=== PATIENT | female | born 1970 | race Caucasian/White ===

== ENCOUNTER 2018-02-26 09:13 | Inpatient (IN) | payer OTHER ==
[~2018-02-26] VITALS: Ht 160 cm; Wt 48.5 kg
[2018-02-26] VITALS (14 sets, daily range): BP systolic 94–118; BP diastolic 64–81
[~2018-02-26 09:13] MED LIST: MILK THISTLE140 M1 PO; ONE DAILY1 EAC3 ORAL; Pantoprazole Inj IVP ONE; Vancomycin 1gm/D5W 275ml IVPB ONE
[2018-02-26] MEDS ORDERED: Vancomycin 1gm inj IVPB ONE (10:36)
[2018-02-26] MEDS ORDERED: Pantoprazole Inj ONE (10:36)
[2018-02-26] MEDS ORDERED: Thrombin 5000 units spray kit TOPIC ONE ×2 (10:48→13:24)
[2018-02-26] MEDS ORDERED: EPINEPHrine 1mg/1ml Amp ONE (10:48)
[2018-02-26] MEDS ORDERED: Thrombin 5000 units TOPIC ONE ×2 (10:49→10:51)
[2018-02-26] MEDS ORDERED: Gelfoam Absorbable 1gm powder pkt TOPIC ONE (10:49)
[2018-02-26] MEDS ORDERED: Gelfoam Size TOPIC ONE (10:49)
[2018-02-26] MEDS ORDERED: Bacitracin 50000 Units Vial ONE ×2 (10:49→13:37)
[2018-02-26] MEDS ORDERED: Bupivacaine 0.5% Inj 30 ml vial INJ ONE (10:49)
[2018-02-26] MEDS ORDERED: Sterile Water Irrig 1000ml IRRIG ONE (11:00)
[2018-02-26] MEDS ORDERED: LR 1000ml ONE (11:00)
[2018-02-26] MEDS ORDERED: Propofol 1,000mg/ 100ml btl IV ONE (11:00)
[2018-02-26] MEDS ORDERED: Neostigmine 1mg/ml 10ml Inj ONE (11:00)
--- NOTE | 2018-02-26 11:02 | Anethesia Preoperative Eval ---
Anesthesia Pre-op PMH/ROS General Date of Evaluation: Feb 26, 2018 Time of Evaluation: 11:01 Anesthesiologist: [id number] ASA Score: ASA 2 Mallampati Score Class I : Soft palate, uvula, fauces, pillars visible Class II: Soft palate, uvula, fauces visible Class III: Soft palate, base of uvula visible Class IV: Only hard plate visible Mallampati Classification: Class I Surgeon: Solange Diagnosis: Back Pain Surgical Procedure: TLIF L4-5, L5-S1 Anesthesia History: none Family History: no anesthesia problems Allergies: Coded Allergies: No Known Allergies (Unverified , 02/26/18) Medications: see eMAR Past Medical History Neurologic/Psychiatric: Reports: other - Headache PSxH Narrative: Lithotripsy Anesthesia Pre-op Phys. Exam Physician Exam Last Vital Signs Date Time Temp Pulse Resp B/P (MAP) Pulse Ox O2 Delivery O2 Flow Rate FiO2 02/26/18 10:03 97.7 74 18 94/68 (77) 99 97.7 02/26/18 09:44 Room Air Constitutional: NAD Neurologic: CN 2-12 intact Cardiovascular: RRR Respiratory: CTA Gastrointestinal: S/NT/ND Airway Exam Mallampati Score: Class I MO: full ROM: full Teeth: intact Anesthesia Pre-op A/P Labs Urine Test Test 02/26/18 09:25 Urine HCG, Qualitative Negative (NEGATIVE) Risk Assessment & Plan Assessment: ASA 2 Plan: GA, SED, GlideScope Go Status Change Before Surgery: No Pre-Antibiotics Dru Gram Vancomycin IV Given Within 1 Hr of Incision: Yes Time Given: 11:16 Nato Hall MD Feb 26, 2018 11:02
[2018-02-26] MEDS ORDERED: Sodium Chloride 10ml vial INJ ONE (11:03)
[2018-02-26] MEDS ORDERED: Lidocaine 1% MPF 10mg/ml 5ml ONE (11:03)
[2018-02-26] MEDS ORDERED: Dexamethasone 4mg/ml vial ONE (11:03)
[2018-02-26] MEDS ORDERED: Lidocaine 1% Plain 30 ml INJ ONE ×2 (11:03→13:31)
--- NOTE | 2018-02-26 11:07 | Pre-Procedure Note/Attestation ---
Pre-Procedure Note/Attestation Complete Prior to Procedure Planned Procedure: bilateral Procedure Narrative: Redo posterior lumbar decompression at L4-5 and L5-S1 levels, with pedicle screw fixation and posterolateral arthrodesis at L4 to S1 with allograft, autograft and iliac crest bone marrow aspiration,and interbody graft at L5-S1 Attestation I attest that I discussed the nature of the procedure; its benefits; risks and complications; and alternatives (and the risks and benefits of such alternatives ), prior to the procedure, with the patient (or the patient's legal manufacturer representative). I attest that, if there was a reasonable possibility of needing a blood transfusion, the patient (or the patient's legal manufacturer representative) was given the [place] Department [employer] [facility] standardized written summary, pursuant to the [place] Blood Safety Act ([place] Health and Safety Code # 1645, as amended). I attest that I re-evaluated the patient just prior to the surgery and that there has been no change in the patient's H&P, except as documented below: Sandy Narvaez MD Feb 26, 2018 11:07
[2018-02-26] MEDS ORDERED: Heparin 5000 units/ml inj ONE (11:11)
--- NOTE | 2018-02-26 11:57 | Immediate Post-Op Evaluation ---
Immediate Post-Op Evalulation Immediate Post-Op Evalulation Procedure: TLIF L4-5, L5-S1 Date of Evaluation: Feb 26, 2018 Time of Evaluation: 16:37 IV Fluids: 1000 LR Blood Products: 0 Estimated Blood Loss: 75 Urinary Output: 200 Blood Pressure Systolic: 116 Blood Pressure Diastolic: 72 Pulse Rate: 81 Respiratory Rate: 16 O2 Sat by Pulse Oximetry: 100 Temperature (Fahrenheit): 98.3 Pain Score (1-10): 3 Nausea: No Vomiting: No Complications 0 Patient Status: awake, reacts, patent, extubated, none Hydration Status: adequate Dru Gram Vancomycin IV Given Within 1 Hr of Incision: Yes Time Given: 11:16 Nato Hall MD Feb 26, 2018 11:57
[2018-02-26] MEDS ORDERED: NS Irrig 1000ml IRRIG ONE (12:30)
[2018-02-26] MEDS ORDERED: HYDROcodone/Acetamin 7.5/325 tab ORAL PRN (12:44)
[2018-02-26] MEDS ORDERED: Hydromorphone 0.5mg/0.5ml inj IVP PRN (12:44)
[2018-02-26] MEDS ORDERED: Norco 5mg/325mg tab ORAL PRN (12:44)
[2018-02-26] MEDS ORDERED: Ketorolac 30mg Inj IV PRN ×2 (12:45)
[2018-02-26] MEDS ORDERED: oxyCODONE HCL/Acetaminophen 5/325mg ORAL PRN (12:45)
[2018-02-26] MEDS ORDERED: Metoclopramide 10mg/2ml Inj IVP PRN (12:46)
[2018-02-26] MEDS ORDERED: LORazepam Inj 2mg/ml 1ml IV PRN (12:46)
[2018-02-26] MEDS ORDERED: Midazolam 2mg/2ml Inj IVP PRN (12:46)
[2018-02-26] MEDS ORDERED: Labetalol 5mg/ml 20ml vial IV PRN (12:47)
[2018-02-26] MEDS ORDERED: DiphenhydrAMINE 50mg/ml Inj IVP PRN (12:47)
[2018-02-26] MEDS ORDERED: LR 1000ml 1,000 ML IVLG SCH (12:48)
[2018-02-26] MEDS ORDERED: Atropine Sulfate 0.4mg/ml inj IVP PRN (12:48)
[2018-02-26] MEDS ORDERED: Meperidine 50mg/ml Inj(FOR RIGORS ONLY) IVP PRN (12:48)
[2018-02-26] MEDS ORDERED: fentaNYL 100 mcg/2 mL IV PRN (12:49)
[2018-02-26] MEDS ORDERED: Acetaminophen (Non formulary) 100 ML IV ONE (12:49)
[2018-02-26] MEDS ORDERED: fentaNYL 100 mcg/2 mL IV ONE (13:16)
[2018-02-26] MEDS ORDERED: Glycopyrrolate 0.2mg/ml 1ml Vial ONE (15:36)
[2018-02-26] MEDS ORDERED: Naloxone 0.4mg/ml Inj ONE (15:45)
[2018-02-26] MEDS ORDERED: PCA Education Pamphlet MISC ONE (16:00)
[2018-02-26] MEDS ORDERED: Naloxone 0.4mg/ml Inj IVP PRN (16:00)
[2018-02-26] MEDS ORDERED: Rate Change PCA 1 Each MISC PRN (16:00)
[2018-02-26] MEDS ORDERED: LORazepam 1mg tab ORAL PRN (16:00)
[2018-02-26] MEDS ORDERED: PCA HYDROmorphone 1mg/ml 30 ML IV PRN (16:00)
[2018-02-26] MEDS ORDERED: HYDROmorphone 1mg/ml Carpuject IVP PRN (16:30)
[2018-02-26] MEDS ORDERED: Milk of Magnesia 30ml Ud ORAL PRN (16:30)
[2018-02-26] MEDS ORDERED: traMADol 50mg tab ORAL PRN (16:30)
--- NOTE | 2018-02-26 16:51 | Brief Operative Note ---
Immediate Post Operative Note Operative Note Chief Complaint: intractable low back pain and radiculopathy Pre-op Diagnosis: 1. Intractacble post-trauma low back pain and radiculopathy 2. status post prior lumbar disectomy L45- and L5-S1 on the right 3. Lack of improvement from conservative care and prior lumbar decompressive surgery. Procedure: 1. Redo R L4 hemilaminectomy, foraminotomy and removal of epidural scar and decompression of the nerve root and thecal sac centrally. 2. Neurolysis of the Right L5 nerve root with microdissection and intra- operative microscope. 3. Left L5 hemilaminectomy , medial facetectomy and foraminotomy. 4. Trans foraminal discectomy, decompression of the foraminal nerve L5-S1 level 5. Insertion of a 10 mm titanium biomechanical device at the L5-S1 level 6. Trans pedicular fixation through intra-muscular approach, using the U&I system, L4 L5 and S1 levels, bilaterally under fluoroscopic guidance. 6.0 ad 5.0 screw. 40 and 45 mm 7. posterolateral arthrodesis , L4 to S1 bilaterally 8. [place] of local bone from lamina for grafting 9. Right iliac crest bone marrow aspiration and processing for grafting 10. Application of epidural fat graft to laminectomy defect at L5-S1 11. Intra-op supervision, use and interpretation of fluoroscopy for localization and instrumentation of the lumbar spine. 12. Plastic surgical closure of 10 cm lumbar wound 13. Insertion of epidural drain 14. Microdissection with use of operative microscope. Post-op Diagnosis: same as pre-op Findings: consistent w/pre-op dx studies Surgeon: Sandy Narvaez MD Salesperson Hosiery: Jeremy Martinez MD Anesthesiologist: Dr. Aguilar Anesthesia: general Specimen: yes - disc L5-S1 and epidural scar L4-5 Complications: none Condition: stable Fluids: 1.0 liter crystalloid Estimated Blood Loss: volume - 50 cc Drains: hemovac Implant(s) used?: Yes - U & I pedicle screws . Renovis #-D titanium cage. [place]. Bone marrow\aspirate Sandy Narvaez MD Feb 26, 2018 16:51
--- NOTE | 2018-02-26 17:09 | General Progress Note ---
Progress Note Progress Note Neurosuregry Post op Recovery S/ Comfortable. No leg pain O/ Vs: Last 24 Hour Vital Signs Date Time Temp Pulse Resp B/P (MAP) Pulse Ox O2 Delivery O2 Flow Rate FiO2 02/26/18 17:05 98.5 02/26/18 17:00 98.5 02/26/18 16:50 65 15 112/77 100 Nasal Cannula 3 02/26/18 16:40 68 13 109/78 100 Simple Mask 6 02/26/18 16:35 76 17 109/79 100 Simple Mask 6 02/26/18 16:30 76 20 116/81 100 Simple Mask 6 02/26/18 16:27 208.9 81 16 100 02/26/18 16:26 98.5 81 16 116/70 100 Simple Mask 6 98.5 02/26/18 10:03 97.7 74 18 94/68 (77) 99 97.7 02/26/18 09:44 Room Air Alert and oriented x 4 Moves all extremities well dressing is dry drain minimal output doing well admit family updated Sandy Narvaez MD Feb 26, 2018 17:09
[2018-02-26] MEDS ORDERED: Docusate 100mg cap ORAL SCH (18:00)
[2018-02-26] MEDS: Docusate Sod/Senna tab ORAL SCH (18:53)
[2018-02-26] MEDS: PCA shift volume MISC SCH (19:26)
[2018-02-26] MEDS: NS w/KCl 20mEq 1,000 ML IV SCH (20:37)
[2018-02-26] MEDS: ceFAZolin 1gm/50ml Premix 50 ML IV SCH (21:41)
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
[2018-02-26] MEDS: DiphenhydrAMINE 50mg/ml Inj IVP PRN (23:35)
[2018-02-27] VITALS: BP 97/61
[2018-02-27 04:00] VITALS: BP 93/63
[2018-02-27] MEDS: DiphenhydrAMINE 50mg/ml Inj IVP PRN ×2 (05:39→13:50)
[2018-02-27] MEDS: ceFAZolin 1gm/50ml Premix 50 ML IV SCH ×2 (05:39→13:51)
[2018-02-27 07:03] LABS: ANION GAP 7 mmol/L (5-15); BLOOD UREA NITROGEN 9 mg/dL (7-18); CALCIUM 8.6 MG/DL (8.5-10.1); CARBON DIOXIDE 26 MMOL/L (21-32); CHLORIDE 103 MMOL/L (98-107); CREATININE 0.9 MG/DL (0.55-1.30); POTASSIUM 3.7 MMOL/L (3.5-5.1); SODIUM 136 MMOL/L (136-145)
[2018-02-27 07:07] LABS: BASOPHILS % (AUTO) 0.1 % (0.0-2.0); EOSINOPHILS % (AUTO) 0.1 % (0.0-3.0); HEMATOCRIT 35.4 % (37.0-47.0); HEMOGLOBIN 12.3 G/DL (12.0-16.0); LYMPHOCYTES % (AUTO) 9.5 % (20.0-45.0); MEAN CORPUSCULAR VOLUME 96 FL (80-99); MONOCYTES % (AUTO) 6.1 % (1.0-10.0); NEUTROPHILS % (AUTO) 84.2 % (45.0-75.0); PLATELET COUNT 171 K/UL (150-450); RED BLOOD COUNT 3.68 M/UL (4.20-5.40); RED CELL DISTRIBUTION WIDTH 9.5 % (11.6-14.8); WHITE BLOOD COUNT 9.5 K/UL (4.8-10.8)
[2018-02-27] MEDS: PCA shift volume MISC SCH (07:25)
[2018-02-27 08:00] VITALS: BP 91/61
[2018-02-27] MEDS: NS w/KCl 20mEq 1,000 ML IV SCH (08:08)
[2018-02-27] MEDS: Docusate Sod/Senna tab ORAL SCH ×2 (08:10→17:40)
[2018-02-27] MEDS: HYDROcodone/Acetamin 7.5/325 tab ORAL PRN ×4 (09:43→18:02)
--- NOTE | 2018-02-27 10:07 | 48 Hour Post Anesthesia Eval ---
Post Anesthesia Evaluation Procedure: TLIF L4-5, L5-S1 Date of Evaluation: Feb 27, 2018 Time of Evaluation: 06:30 Blood Pressure Systolic: 93 0: 63 Pulse Rate: 65 Respiratory Rate: 18 Temperature (Fahrenheit): 98.4 O2 Sat by Pulse Oximetry: 98 Airway: patent Nausea: No Vomiting: No Pain Intensity: 2 Hydration Status: adequate Cardiopulmonary Status: at baseline Mental Status/LOC: patient returned to baseline Post-Anesthesia Complications: 0 Follow-up care needed: N/A - further care as per primary team Irene Collazo MD Feb 27, 2018 10:07
--- NOTE | 2018-02-27 10:34 | Diagnostic Imaging Report ---
INDICATION: Pain, intraoperative, back pain right lower extremity greater than left lower extremity TECHNIQUE: Intraoperative imaging Fluoroscopy time: 39 seconds Total dose: 0.35072 mGym2 Total number of images: 2 COMPARISON: None FINDINGS: Intraoperative images document posterior fusion of L4, L5, and S1 with pedicle screws and posterior fusion rods. A disc prosthesis is present at L5-S1 IMPRESSION: Intraoperative imaging, as described
[2018-02-27 12:00] VITALS: BP 96/50
[2018-02-27 16:00] VITALS: BP 91/53
--- NOTE | 2018-02-27 17:31 | General Progress Note ---
Progress Note Progress Note S/ Ambulated with PT. OFF HAND HIDE STRETCHER. No leg pain. O/ Vs: Last 24 Hour Vital Signs Date Time Temp Pulse Resp B/P (MAP) Pulse Ox O2 Delivery O2 Flow Rate FiO2 02/27/18 16:00 98.4 64 20 91/53 (66) 100 98.4 02/27/18 12:00 98.5 67 20 96/50 (65) 96 98.5 02/27/18 10:07 209.1 65 18 98 02/27/18 09:00 Room Air 02/27/18 08:00 98.1 70 20 91/61 (71) 96 98.1 02/27/18 08:00 18 02/27/18 04:56 18 02/27/18 04:00 98.4 65 18 93/63 (73) 98 98.4 02/27/18 00:25 18 02/27/18 00:00 97.1 68 18 97/61 (73) 98 97.1 02/26/18 21:06 97.1 63 18 101/68 (79) 100 97.1 02/26/18 21:02 Room Air 02/26/18 20:37 18 02/26/18 18:45 97.1 67 20 101/64 (76) 97 97.1 02/26/18 18:14 Nasal Cannula 3.0 02/26/18 17:50 97.4 74 18 115/77 (90) 100 97.4 02/26/18 17:50 18 02/26/18 17:45 17 02/26/18 17:39 98.2 70 17 110/74 100 Nasal Cannula 3 98.2 02/26/18 17:31 98.5 02/26/18 17:31 98.5 Alert and oriented x 4 Moves ll extremities well normal sensation. Lower extremity motor is 5/5. labs: Laboratory Tests Test 02/27/18 06:27 White Blood Count 9.5 K/UL (4.8-10.8) Red Blood Count 3.68 M/UL (4.20-5.40) L Hemoglobin 12.3 G/DL (12.0-16.0) Hematocrit 35.4 % (37.0-47.0) L Mean Corpuscular Volume 96 FL (80-99) Mean Corpuscular Hemoglobin 33.3 PG (27.0-31.0) H Mean Corpuscular Hemoglobin Concent 34.6 G/DL (32.0-36.0) Red Cell Distribution Width 9.5 % (11.6-14.8) L Platelet Count 171 K/UL (150-450) Mean Platelet Volume 8.6 FL (6.5-10.1) Neutrophils (%) (Auto) 84.2 % (45.0-75.0) H Lymphocytes (%) (Auto) 9.5 % (20.0-45.0) L Monocytes (%) (Auto) 6.1 % (1.0-10.0) Eosinophils (%) (Auto) 0.1 % (0.0-3.0) Basophils (%) (Auto) 0.1 % (0.0-2.0) Sodium Level 136 MMOL/L (136-145) Potassium Level 3.7 MMOL/L (3.5-5.1) Chloride Level 103 MMOL/L (98-107) Carbon Dioxide Level 26 MMOL/L (21-32) Anion Gap 7 mmol/L (5-15) Blood Urea Nitrogen 9 mg/dL (7-18) Creatinine 0.9 MG/DL (0.55-1.30) Estimat Glomerular Filtration Rate > 60 mL/min (>60) Glucose Level 86 MG/DL (74-106) Calcium Level 8.6 MG/DL (8.5-10.1) Magnesium Level 1.6 MG/DL (1.8-2.4) L doing well continue PT replace Mg d/c Sandy Pena MD Feb 27, 2018 17:31
[2018-02-27] MEDS: Magnesium Oxide 400mg tab ORAL SCH (17:40)
[2018-02-27 21:00] VITALS: BP 90/54
[2018-02-28 04:00] VITALS: BP 89/61
[2018-02-28] MEDS: HYDROcodone/Acetamin 7.5/325 tab ORAL PRN (04:45)
[2018-02-28 08:00] VITALS: BP 94/60
[2018-02-28] MEDS: Magnesium Oxide 400mg tab ORAL SCH (09:05)
[2018-02-28] MEDS: Docusate Sod/Senna tab ORAL SCH (09:05)
[2018-02-28] MEDS ORDERED: NORCO 10-325 T1 EACH ORAL (10:44)
[2018-02-28] MEDS ORDERED: Magnesium Oxide 400mg tab ORAL SCH (12:00)
[2018-02-28] MEDS ORDERED: NS 275ml ONE (12:09)
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
== END 2018-02-28 12:10 | disposition home or self-care (01) | DRG 460 ==
LOC: SDSOVERFLO 09:13 → 3E 17:50
PROC: 07DR3ZZ Extraction of Iliac Bone Marrow, Percutaneous Approach (ICD-10-PCS; principal; 2018-02-26 11:00)
PROC: 0SG30AJ Fusion of Lumbosacral Joint with Interbody Fusion Device, Posterior Approach, Anterior Column, Open Approach (ICD-10-PCS; principal; 2018-02-26 11:00)
PROC: 01NB0ZZ Release Lumbar Nerve, Open Approach (ICD-10-PCS; principal; 2018-02-26 11:00)
PROC: 0ST40ZZ Resection of Lumbosacral Disc, Open Approach (ICD-10-PCS; principal; 2018-02-26 11:00)
DX: M51.16 Intervertebral disc disorders with radiculopathy, lumbar region (principal); M51.17 Intervertebral disc disorders with radiculopathy, lumbosacral region; M51.87 Other intervertebral disc disorders, lumbosacral region; V89.2XXS Person injured in unspecified motor-vehicle accident, traffic, sequela
CPT/HCPCS: 36415; 72020; 76001; 80048; 81025; 83735; 85025; 86850; 86900; 86901; 87081; 94003; 94150; C9399; J2405; J2710